=== PATIENT | female | born 1975 | race Caucasian/White ===

== ENCOUNTER → 2017-07-26 | Outpatient (CLI) | payer BC ==
--- NOTE | 2017-07-26 17:05 | US ---
EXAMINATION TYPE: US thyroid st tissue head/neck DATE OF EXAM: 07/26/2017 COMPARISON: NONE CLINICAL HISTORY: E03.9 HYPOTHYROIDISM. abnormal labs GLAND SIZE: Right Lobe: 5.7 x 1.8 x 2.2 cm Overall Parenchyma: heterogenous Left Lobe: 5.2 x 1.6 x 1.6 cm Overall Parenchyma: heterogeneous Isthmus Thickness: 0.2 cm NODULES RIGHT: # of nodules measured on right: 1 1. 1.6 X 1.6 x 1.4 cm solid nodule at the mid pole with well-defined margins. This nodule is wider than tall and shows intranodular vascularity. Prior size: HAND SALTER LEFT: # of nodules measured on left: 1 1. 0.9 X 0.8 x 0.7 cm solid nodule at the mid pole with well-defined margins. This nodule is talle r than wide and shows intranodular vascularity. Prior size: HAND SALTER ISTHMUS: # of nodules measured in the isthmus: 0 Bilateral neck scanned, no evidence of lymphadenopathy. IMPRESSION: Bilateral findings as above. I see no dominant thyroid mass. The gland is top normal in size.
== END | disposition home or self-care (01) ==
LOC: RADUSWWP 16:27
PROVIDERS: ATTEND Internal Medicine
DX: E04.2 Nontoxic multinodular goiter (principal); E03.9 Hypothyroidism, unspecified
CPT/HCPCS: 76536

== ENCOUNTER → 2017-08-22 | Outpatient (CLI) | payer BC ==
--- NOTE | 2017-08-22 13:09 | NM ---
EXAMINATION TYPE: NM thyroid image only DATE OF EXAM: 08/22/2017 COMPARISON: Ultrasound 07/26/2016 HISTORY: Thyroid nodule TECHNIQUE: After the intravenous administration of 9.93 mCi Tc 99m Sodium Pertechnetate. FINDINGS: There is diminished radiotracer accumulation over the inferior medial right lobe thyroid. This correl ates with finding on ultrasound. Biopsy is recommended. IMPRESSION: 1. Cold nodule inferior medial right lobe thyroid. Ultrasound-guided biopsy is recommended.
== END | disposition home or self-care (01) ==
LOC: RADNMMAIN 10:50
PROVIDERS: ATTEND Otolaryngology
DX: E04.1 Nontoxic single thyroid nodule (principal)
CPT/HCPCS: 78013; A9512

== ENCOUNTER 2017-09-08 11:56 | Day surgery (SDC) | payer BC ==
[2017-09-08 12:28] VITALS: TEMP 98.7
[2017-09-08 13:29] VITALS: BP 133/78; PULSE 55; RESP 14
--- NOTE | 2017-09-08 13:48 | US ---
ULTRASOUND GUIDED FNA THYROID BIOPSY: CLINICAL HISTORY: Right thyroid nodule FINDINGS: The procedure was explained to the patient. The risks, complications, benefits and alternatives were discussed and any questions were answered. Informed consent was obtained. Patient was placed supin e on the ultrasound table and prepped and draped in the usual sterile fashion. Utilizing a 25 gauge needle, five passes were made into the requested right thyroid nodule. Patient was stable throughout the procedure. Pathology is pending. All elements of maximal barrier technique were utilized. IMPRESSION: 1. Successful ultrasound guided FNA thyroid biopsy.
== END 2017-09-08 13:33 | disposition home or self-care (01) ==
LOC: RADPROMAIN 11:56
PROVIDERS: ATTEND Otolaryngology
DX: E04.1 Nontoxic single thyroid nodule (principal)
CPT/HCPCS: 10022; 76942; 88173; 88305

== ENCOUNTER → 2020-09-22 | Outpatient (CLI) | payer OTHER ==
--- NOTE | 2020-09-23 07:23 | US ---
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 GLAND SIZE: Right Lobe: 5.9 x 2.6 x 2.7 cm Overall Parenchyma: heterogenous Left Lobe: 5.9 x 1.5 x 1.8 cm Overall Parenchyma: heterogeneous Isthmus Thickness: 0.2 cm NODULES RIGHT: # of nodules measured on right: 1. 2.2 X 1.6 x 2.2 cm, mid, mixed cystic and solid, isoechoic nodule, which is wider than tall, wit h smooth margins, without echogenic foci. Prior size: 1.6 x 1.6 x 1.4 cm LEFT: # of nodules measured on left: 1 1. 0.7 X 0.5 x 0.7 cm, mid, solid or almost completely solid, isoechoic nodule, which is wider than tall, with smooth margins, without echogenic foci. Prior size: 0.9 x 0.8 x 0.7 cm ISTHMUS: # of nodules measured in the isthmus: 0 Bilateral neck scanned, no evidence of lymphadenopathy. IMPRESSION: Bilateral thyroid nodules are again seen with the right nodule increased in size now measuring up to 2.2 cm. 2017 ACR TI-RADS LEVEL: TR-RADS 3 - Mildly Suspicious: Follow if > 1.5 cm, FNA if > 2.5 cm *Highest TI-RADS level nodule reported
== END | disposition home or self-care (01) ==
LOC: RADUSWWP 15:37
PROVIDERS: ATTEND Internal Medicine Endocrinology, Diabetes & Metabolism
DX: E04.1 Nontoxic single thyroid nodule (principal); E05.00 Thyrotoxicosis with diffuse goiter without thyrotoxic crisis or storm
CPT/HCPCS: 76536